=== PATIENT | female | born 1990 ===

== ENCOUNTER 2021-08-09 09:42 | Inpatient (IN) | payer BC ==
[~2021-08-09 09:42] MED LIST: Oxytocin/0.9 % Sodium Chloride 30 UNIT/500 ML BAG ONE
[2021-08-09] MEDS ORDERED: Docusate Sodium 100 MG Cap PO PRN (10:26)
[2021-08-09] MEDS ORDERED: Ibuprofen 400 MG Tab PO PRN (10:26)
[2021-08-09] MEDS ORDERED: Sodium Chloride 0.9% 2.5 ML Syringe FLUSH PRN (10:26)
[2021-08-09] MEDS ORDERED: Misoprostol 200 MCG Tab RECTAL PRN (10:26)
[2021-08-09] MEDS ORDERED: Ibuprofen 800 MG Tab PO PRN (10:26)
[2021-08-09] MEDS ORDERED: Sodium Chloride 0.9% 10 ML Syringe FLUSH PRN (10:26)
[2021-08-09] MEDS ORDERED: Bisacodyl 10 MG Supp RECTAL PRN (10:26)
[2021-08-09] MEDS ORDERED: Benzocaine/Menthol 20%-0.5% Spray 78 GM Cannister TOP PRN (10:26)
[2021-08-09] MEDS ORDERED: Acetaminophen 500 MG Tab PO PRN ×2 (10:26)
[2021-08-09] MEDS ORDERED: Carboprost Tromethamine 250 MCG/1 ML Amp IM PRN (10:26)
[2021-08-09] MEDS ORDERED: Witch Hazel Medicated Pads 40/Jar TOP PRN (10:26)
[2021-08-09] MEDS ORDERED: Lanolin 100% Cream 7 GM Tube TOP PRN (10:26)
[2021-08-09] MEDS ORDERED: Tranexamic Acid 1,000 MG in Sodium Chloride 0.9% 100 ML IV PRN (10:26)
[2021-08-09] MEDS ORDERED: Methylergonovine 0.2 MG/1 ML Amp IM PRN (10:26)
[2021-08-09] MEDS ORDERED: oxyCODONE 5 MG Tab PO PRN (10:26)
[2021-08-09] MEDS ORDERED: Lactated Ringers 1,000 ML IV SCH (10:30)
[2021-08-09] MEDS ORDERED: Oxytocin/0.9 % Sodium Chloride 30 UNIT/500 ML BAG IV SCH (10:30)
[2021-08-09] MEDS ORDERED: ePHEDrine 50 MG/ML SDV IVPUSH PRN ×2 (10:37)
[2021-08-09] MEDS ORDERED: Ropivacaine 200 MG in Premix Bag 1 BAG EPIDUR SCH (10:45)
== END 2021-08-10 12:10 | disposition home or self-care (01) | DRG 560 ==
LOC: MW.OB 09:42
PROVIDERS: ADMIT Obstetrics & Gynecology; ATTEND Obstetrics & Gynecology
PROC: 10E0XZZ Delivery of Products of Conception, External Approach (ICD-10-PCS; principal; 2021-08-09)
DX: O80 Encounter for full-term uncomplicated delivery (principal); Z37.0 Single live birth; Z20.822 Contact with and (suspected) exposure to COVID-19; Z3A.37 37 weeks gestation of pregnancy; Z79.82 Long term (current) use of aspirin; Z86.16 Personal history of COVID-19
CPT/HCPCS: 36415; 59409; 85014; 85018; 85027; 86592; 86850; 86900; 86901; A9270-GY; J2590; U0002